=== PATIENT | female | born 1955 | race Caucasian/White ===

== ENCOUNTER → 2016-10-06 | Outpatient (CLI) | payer BC ==
[~2016-10-06] MED LIST: APIX1TAB3 PO; ASPCH81X PO; ATOR10TA82 PO; COEN100C15 PO; DOXE10CA PO; DOXY100C76 PO; ESCI1TAB10 PO; METO-551 PO; METO25TA56 PO; MULT-506 PO; SUMA100T16 PO; SUMA6KIT2 SQ
== END | disposition home or self-care (01) ==
LOC: C.PAPS 14:39
PROVIDERS: ATTEND Family Medicine
DX: Z12.72 Encounter for screening for malignant neoplasm of vagina (principal)

== ENCOUNTER → 2016-12-17 | Outpatient (CLI) | payer BC ==
[~2016-12-17] MED LIST changes: -ASPCH81X PO; -ATOR10TA82 PO; +ATOR10TA88 PO; -DOXY100C76 PO
--- NOTE | 2016-12-17 08:50 | DIAGNOSTIC IMAGING REPORT ---
LEFT KNEE 4 OR MORE CLINICAL HISTORY: 61 years-old Female presenting with LEFT KNEE PAIN. TECHNIQUE: Bilateral frontal view of the knees in standing position and frontal, lateral, and sunrise views of the left knee were obtained. COMPARISON: None. FINDINGS: Bilateral frontal view of the knees demonstrate symmetric joint spaces and concurrent knee joints. Trace left knee joint suspected. No acute fracture or malalignment. Suggestion of minimal lateral subluxation of the patella with minimal osteophytosis. The trochlea is normal in appearance. No other significant degenerative change. IMPRESSION: No acute osseous injury. Suggestion of minimal degenerative change and possible lateral subluxation of the patella. Correlate for symptoms of patellofemoral instability. Electronically signed by: Tom Reno M.D. 12/17/2016 8:49 AM Dictated Date/Time: 12/17/2016 8:43 AM
== END | disposition home or self-care (01) ==
LOC: C.RDSM 12:53
PROVIDERS: ATTEND Internal Medicine
DX: M25.562 Pain in left knee (principal)

== ENCOUNTER → 2017-02-10 | Outpatient (CLI) | payer BC ==
[~2017-02-10] VITALS: Ht 165.1 cm; Wt 84.8 kg
[2017-02-10 15:39] VITALS: BP 126/64; PULSE 53; BMI 31.1
[2017-02-10 15:40] VITALS: BP 126/64; PULSE 53; Ht 165.1 cm; Wt 84.8 kg
== END | disposition home or self-care (01) ==
LOC: C.NEUR 14:49
PROVIDERS: ATTEND Internal Medicine Pulmonary Disease
DX: F51.04 Psychophysiologic insomnia (principal); I48.0 Paroxysmal atrial fibrillation; E78.00 Pure hypercholesterolemia, unspecified; R00.2 Palpitations

== ENCOUNTER → 2017-06-23 | Outpatient (CLI) | payer OTHER ==
[~2017-06-23] MED LIST changes: +ATOR10TA82 PO; -ATOR10TA88 PO
--- NOTE | 2017-06-23 13:44 | MAMMOGRAPHY REPORT ---
BILATERAL DIGITAL DIAGNOSTIC MAMMOGRAM TOMOSYNTHESIS WITH CAD AND TARGETED RIGHT ULTRASOUND: 8 CLINICAL HISTORY: The patient reports intermittent pain predominantly behind her right nipple for giovanni roximately 3 months. She denies any palpable lumps, nipple discharge, changes of the nipple, or othe r complaints. TECHNIQUE: Breast tomosynthesis in addition to standard 2D mammography was performed. Current study was also evaluated with a Computer Aided Detection (CAD) system. Bilateral CC and MLO 2-D and tomosy nthesis images were obtained. COMPARISON: Comparison is made to exams dated: 09/20/2014 mammogram, 07/04/2013 mammogram, 02/17/2010 ma mmogram - [facility], and 10/08/2008. BREAST COMPOSITION: There are scattered areas of fibroglandular density in both breasts. FINDINGS: There are no suspicious masses, calcifications, or areas of architectural distortion noted in either breast mammographically. There has been no significant interval change compared to prior e xams. Targeted ultrasound was performed of the area of pain pointed out by the patient behind her right nip ple. Targeted ultrasound of the right subareolar breast demonstrates sonographically normal tissue a nd normal-appearing ducts, without evidence of a mass or other suspicious sonographic abnormality. IMPRESSION: ACR BI-RADS CATEGORY 2: BENIGN, TARGETED ULTRASOUND ACR BI-RADS CATEGORY 2: BENIGN No suspicious mammographic or sonographic abnormality to explain intermittent right breast pain. The re is no mammographic or targeted sonographic evidence of malignancy. Recommend clinical follow-up f or right breast pain, and recommend routine bilateral screening mammograms in one year. The patient has been verbally notified of the results. Approximately 10% of breast cancers are not detected with mammography. A negative mammographic report should not delay biopsy if a clinically suggestive mass is present. Pati Car M.D. /:06/23/2017 09:23:46 [place] Supervisor: Cammy HAZEL)([place]), [facility] letter sent: Normal 1/2 BI-RADS Code: ACR BI-RADS Category 2: Benign Ultrasound BI-RADS: ACR BI-RADS Category 2: Benign
== END | disposition home or self-care (01) ==
LOC: C.MAMM 08:58
PROVIDERS: ATTEND Family Medicine
DX: N64.4 Mastodynia (principal)

== ENCOUNTER → 2017-10-10 | Outpatient (CLI) | payer OTHER ==
[~2017-10-10] MED LIST changes: -DOXE10CA PO; -ESCI1TAB10 PO; -METO-551 PO; +METO100T14 PO; -METO25TA56 PO; +TOPI50TA16 PO
== END | disposition home or self-care (01) ==
LOC: C.PAPS 11:33
PROVIDERS: ATTEND Family Medicine
DX: Z12.72 Encounter for screening for malignant neoplasm of vagina (principal)